=== PATIENT | male | born 1950 | race Caucasian/White ===

== ENCOUNTER → 2017-02-15 | Outpatient (CLI) | payer OTHER ==
[2017-02-15 12:29] LABS: COMPLETE YES; HEMATOCRIT 44.5 % (42-52); IG% 0.2 %; LYMPH % 5.9 %; LYMPH ABS # 0.82 K/uL (1.2-3.4); MEAN CELL VOLUME 91.4 fL (80-100); MEAN CORPUSCULAR HEMOGLOBIN 31.6 pg (25-34); MEAN CORPUSCULAR HGB CONC 34.6 g/dl (32-36); MEAN PLATELET VOLUME 9.8 fL (7.4-10.4); NEUT % 88.9 %; PLATELET COUNT 404 K/uL (130-400); RED BLOOD COUNT 4.87 M/uL (4.7-6.1); WHITE BLOOD COUNT 13.99 K/uL (4.8-10.8)
[2017-02-15 12:49] LABS: ALT/SGPT 35 U/L (12-78); BLOOD UREA NITROGEN 17 mg/dl (7-18); BUN/CREATININE RATIO 18.3 (10-20); CALCIUM 9.4 mg/dl (8.5-10.1); CARBON DIOXIDE 29 mmol/L (21-32); CHLORIDE 98 mmol/L (98-107); CHOLESTEROL 175 mg/dl (0-200); CREATININE 0.92 mg/dl (0.60-1.40); GLUCOSE 120 mg/dl (70-99); POTASSIUM 3.6 mmol/L (3.5-5.1); SODIUM 135 mmol/L (136-145)
[2017-02-15 12:53] LABS: ALB/GLOB RATIO 1.1 (0.9-2); ALKALINE PHOSPHATASE 106 U/L (45-117); AST/SGOT 15 U/L (15-37); CHOLESTEROL/HDL RATIO 2.4; HDL CHOLESTEROL 73 mg/dl; LDL CHOLESTEROL CALCULATED 91 mg/dl; TRIGLYCERIDES 55 mg/dl (0-150); VERY LOW DENSITY LIPOPROT CALC 11 mg/dl
[2017-02-15 12:58] LABS: ESTIMATED AVERAGE GLUCOSE 105 mg/dl; HA1C FLAG Normal (Normal)
[2017-02-15 13:02] LABS: URINE APPEARANCE CLEAR (CLEAR); URINE BILIRUBIN NEG (NEG); URINE COLOR YELLOW; URINE EPITHELIAL CELL AUTO 0-5 /lpf (0-5); URINE NITRITE NEG (NEG); URINE PH 6.5 (4.5-7.5); UROBILINOGEN NEG (NEG); ZZUR CULT IF INDIC CLEAN CATCH NO
[2017-02-15 13:11] LABS: MANUAL MICROSCOPIC REQUIRED? NO; REVIEW REQ? NO
== END | disposition home or self-care (01) ==
LOC: C.LABBFT 09:08
PROVIDERS: ATTEND Internal Medicine
DX: N40.1 Benign prostatic hyperplasia with lower urinary tract symptoms (principal); R73.03 Prediabetes; E78.00 Pure hypercholesterolemia, unspecified

== ENCOUNTER 2024-05-15 06:14 | Observation (INO) ==
--- NOTE | 2024-04-13 15:58 | PAT Medication Instructions ---
Medication Instructions Date of Service April 13, 2024 Home Medications Medication Instructions Recorded ondansetron 4 mg disintegrating 4 mg PO Q6H PRN nausea and 05/21/23 tablet vomiting #10 tabs amlodipine 10 mg tablet 10 mg PO QAM #90 tabs 06/24/23 finasteride 5 mg tablet 5 mg PO QPM #90 tabs 06/24/23 lisinopril 20 1 tab PO BID #180 tabs 06/24/23 mg-hydrochlorothiazide 25 mg tablet metoprolol succinate 100 mg 100 mg PO QAM #90 tabs 06/24/23 tablet,extended release 24 hr potassium chloride 20 mEq 20 meq PO BID #180 tabs 06/24/23 tablet,extended release(part/cryst) (Klor-Con M) pravastatin 80 mg tablet 80 mg PO QPM #90 tabs 06/24/23 walker #1 ea 03/23/24 amoxicillin 500 mg tablet 500 mg PO BID 10 days #20 tabs 03/30/24 aspirin 81 mg tablet 81 mg PO QAM multivitamin 1 tab PO QAM melatonin 10 mg tablet 10 mg PO HS PRN ondansetron 4 mg disintegrating tablet 4 mg PO Q6H PRN amlodipine 10 mg tablet 10 mg PO QAM finasteride 5 mg tablet 5 mg PO QPM lisinopril 20 mg-hydrochlorothiazide 25 mg tablet 1 tab PO BID metoprolol succinate 100 mg tablet,extended release 24 hr 100 mg PO QAM potassium chloride 20 mEq tablet,extended release(part/cryst) (Klor-Con M) 20 meq PO BID pravastatin 80 mg tablet 80 mg PO QPM amoxicillin 500 mg tablet 500 mg PO BID ASK your prescriber and surgeon aspirin 81 mg tablet 81 mg PO QAM DO NOT take the morning of surgery multivitamin 1 tab PO QAM lisinopril 20 mg-hydrochlorothiazide 25 mg tablet 1 tab PO BID potassium chloride 20 mEq tablet,extended release(part/cryst) (Klor-Con M) 20 meq PO BID Take morning of surgery With a small sip of water, OTHERWISE NOTHING TO EAT OR DRINK AFTER MIDNIGHT: ondansetron 4 mg disintegrating tablet 4 mg PO Q6H PRN(if needed) amlodipine 10 mg tablet 10 mg PO QAM metoprolol succinate 100 mg tablet,extended release 24 hr 100 mg PO QAM amoxicillin 500 mg tablet 500 mg PO BID Take evening before surgery melatonin 10 mg tablet 10 mg PO HS PRN(if needed) ondansetron 4 mg disintegrating tablet 4 mg PO Q6H PRN(if needed) finasteride 5 mg tablet 5 mg PO QPM lisinopril 20 mg-hydrochlorothiazide 25 mg tablet 1 tab PO BID potassium chloride 20 mEq tablet,extended release(part/cryst) (Klor-Con M) 20 meq PO BID pravastatin 80 mg tablet 80 mg PO QPM amoxicillin 500 mg tablet 500 mg PO BID Other Notes If you have any questions please call us at [phone] or [phone] or [phone] or [phone]
--- NOTE | 2024-04-24 10:24 | Anesthesiology Consultation ---
Date of Service April 24, 2024 Assessment & Plan (1) Encounter for pre-operative examination: - Infectious disease screening: Per assessment on 04/24/24- No known recent infectious disease contacts in past 10 days. Patient had sinus infection/URI onset 03/2024 which was treated. He has had resolution in previous symptoms except residual morning mucous buildup and rare cough (continuing to improve). Patient advised to contact PAT/surgeon if not at baseline prior to surgery. - Outpatient joint assessment: Pt currently scheduled for inpatient pathway. If surgeon requests review for outpatient joint pathway, patient is an acceptable candidate for outpatient joint program from anesthesia standpoint pending surgeon's office assessment that patient is motivated, has good support and completes [facility] Day Joint Program preop requirements. - S/P Right shoulder arthroscopy, RCR (05/21/23): Grade 1 view, Glidescope#4, ETT 8 + regional at [facility] Chart Review Chart Review: Acceptable Risk for Surgery and Patient seen in Pre Admission Testing Teaching & Discussion Pre-Anesthesia Teaching/Discussion Notes: Instructed NPO after midnight before surgery,except medications with 15 cc of water. Medication instructions provided according to the PAT guidelines. History Surgery Operation Date: 05/15/24 08:50 Proposed Procedures p Right Total Knee Arthroplasty - Abhilash Arndt MD Height/Weight Height: 5 ft 10 in Weight: 90.1 kg Allergies Allergy/AdvReac Type Severity Reaction Status Date / Time atorvastatin AdvReac Mild Muscle Pain Verified 04/09/24 09:56 rosuvastatin AdvReac Mild Muscle Pain Verified 04/09/24 09:56 simvastatin AdvReac Mild Muscle Pain Verified 04/09/24 09:32 tamsulosin AdvReac Mild vertigo Verified 04/09/24 09:32 Medications Home Medications Medication Instructions Recorded Confirmed Last Taken aspirin 81 mg tablet 81 mg PO QAM 02/25/19 04/09/24 05/17/23 multivitamin 1 tab PO QAM 02/25/19 04/09/24 Unknown melatonin 10 mg tablet 10 mg PO HS PRN prn 05/09/23 04/09/24 Unknown ondansetron 4 mg disintegrating 4 mg PO Q6H PRN nausea and 05/21/23 04/09/24 Unknown tablet vomiting #10 tabs amlodipine 10 mg tablet 10 mg PO QAM #90 tabs 06/24/23 04/09/24 Unknown finasteride 5 mg tablet 5 mg PO QPM #90 tabs 06/24/23 04/09/24 Unknown lisinopril 20 1 tab PO BID #180 tabs 06/24/23 04/09/24 Unknown mg-hydrochlorothiazide 25 mg tablet metoprolol succinate 100 mg 100 mg PO QAM #90 tabs 06/24/23 04/09/24 Unknown tablet,extended release 24 hr potassium chloride 20 mEq 20 meq PO BID #180 tabs 06/24/23 04/09/24 Unknown tablet,extended release(part/cryst) (Klor-Con M) pravastatin 80 mg tablet 80 mg PO QPM #90 tabs 06/24/23 04/09/24 Unknown walker #1 ea 03/23/24 Unknown amoxicillin 500 mg tablet 500 mg PO BID 10 days #20 tabs 03/30/24 04/09/24 Unknown Past Medical History Medical History Arthritis BPH (benign prostatic hyperplasia) History of COVID-19 2021 + 05/2023, mild syptoms, resolved HTN (hypertension) Hypercholesteremia Mitral regurgitation Echo 04/2019: Trace to mild MR Pre-diabetes "Borderline" Right knee DJD Sensorineural hearing loss (SNHL) of both ears Exercise / Class Metabolic Activity II 4-5 Yardwork/Stairs/Walk up hill Past Family History Family History Sister Breast cancer Father Prostate cancer Denies family history of Ovarian cancer Myocardial infarction Colorectal cancer Past Surgical History Surgical History Family history of reaction to anesthesia Father difficulty waking at age 84 and cognitive impair History of vasectomy Hx of arthroscopy of shoulder Right shoulder arthroscopy, RCR (05/21/23): Grade 1 view, Glidescope#4, ETT 8 + regional at [facility] Past Anesthesia History No Hx of Anesthesia Complications * Father difficulty waking and cognitive impair (at age 84) History of PONV No Hx of PONV and No Hx of Motion Sickness Social History Smoking Status: Former smoker tobacco type: cigarettes, pipe and smokeless tobacco Do You Dip or Chew Tobacco: No Smoking End Date: Quit tobacco use x 2 years ago Hx Alcohol Use: Yes Alcohol type: beer alcohol intake frequency: holidays/special occasions only Hx Substance Use: No substance use type: does not use Review of Systems Patient denies chest pain, shortness of breath, dyspnea on exertion, fever, chills, wheezing, palpitations. Physical Exam Vital Signs BP 149/86 P 61 TEMP 97.9 SP02 95%RA RESP 16 Physical Full cervical extension range of motion. Full TMJ range of motion. TMD > 3.5 finger breaths Mallampati Score II Dentition: missing molars, + crowns Lungs: clear throughout to auscultation Cardiac: regular rate and rhythm, faint systolic murmur Spine: normal Carotid arteries: negative bruit Extremities: no LE edema Lab Results Anesthesia Preop Results Results Anesthesia Widget: WBC 5.63 K/ul (4.8-10.8) 04/24/24 Hgb 15.1 g/dl (14.0-18.0) 04/24/24 Hct 43.0 % (42.0-52.0) 04/24/24 Plt 308 K/uL (130-400) 04/24/24 Na 140 mmol/L (136-145) 04/24/24 K 3.7 mmol/L (3.5-5.1) 04/24/24 Cl 100 mmol/L (98-107) 04/24/24 CO2 33 mmol/L (21-32) H 04/24/24 BUN 14 mg/dl (6-23) 04/24/24 Creat 0.79 mg/dl (0.6-1.4) 04/24/24 Glucose Level 101 mg/dl (70-99(Fasting)) H 04/24/24 PT 10.2 Seconds (9.0-12.0) 04/24/24 PTT 25 Seconds (21-31) 04/24/24 INR 0.9 (0.9-1.1) 04/24/24 HA1c 5.4 % (4.5-5.6) 04/24/24 Blood Type B Negative 04/24/24 Antibody Screen NEGATIVE 04/24/24 Testing Electrocardiogram Date: 04/24/24 SB at 57bpm. RBBB. No significant change compared to 04/08/2023 per logistics administrator comparison. Chest X-Ray Date: 04/24/24 FINDINGS: The cardiac silhouette measures within normal limits. Calcification of the thoracic aorta. The hilar and mediastinal structures appear unremarkable. The lungs are clear. The osseous structures appear grossly intact. Degenerative changes of the thoracic spine. IMPRESSION: No evidence of acute cardiopulmonary disease, communicable disease or tuberculosis. Echocardiogram Date: 04/29/19 EF 60-65%. No regional wall motion abnormality. Mild concentric LVH. Mild RVD. Sclerotic AV, trace regurgitation. Trace to mild MR. Mild TR. Trace UT. Normal estimated RVSP. Other Testing Carotid Duplex Date: 06/27/22 < 50% stenosis ICAs b/l. Antegrade flow b/l vertebral arteries.
--- NOTE | 2024-05-05 12:13 | History & Physical Report ---
Date of Service May 05, 2024 Assessment & Plan (1) Right knee DJD: 73-year-old gentleman with advanced right knee DJD primarily involving the medial compartment. He has failed conservative care. He would like to have his right knee replaced. Plan: We are going to take him to the operating room and do a right knee replacement. The risks and benefit this procedure were explained in depth. The patient understands. He is planned to stay in the hospital overnight and likely discharge postoperative day 1. Will use aspirin for DVT prophylaxis. (2) Hypercholesteremia: (3) HTN (hypertension): (4) Pre-diabetes: (5) BPH (benign prostatic hyperplasia): (6) Mitral regurgitation: History of Present Illness Chief Complaint: . Persistent right knee pain discomfort. Primary Care Provider: Larry London MD . The patient is a 73-year-old gentleman who presents for surgical treatment of his right knee. He has a 10-year history of gradual increasing right knee pain discomfort describes gotten worse over time. He has been managed by both Dr. Torres and Dr. Dietrich most recently. He has failed conservative care. He is had steroid shots and gel injections which become less successful over time. Pains become more debilitating. He is ready to have his knee fixed. Allergies Allergy/AdvReac Type Severity Reaction Status Date / Time atorvastatin AdvReac Mild Muscle Pain Verified 04/09/24 09:56 rosuvastatin AdvReac Mild Muscle Pain Verified 04/09/24 09:56 simvastatin AdvReac Mild Muscle Pain Verified 04/09/24 09:32 tamsulosin AdvReac Mild vertigo Verified 04/09/24 09:32 Home Medications Medication Instructions Recorded Confirmed Type aspirin 81 mg tablet 81 mg PO QAM 02/25/19 04/09/24 History multivitamin 1 tab PO QAM 02/25/19 04/09/24 History melatonin 10 mg tablet 10 mg PO HS PRN prn 05/09/23 04/09/24 History ondansetron 4 mg disintegrating 4 mg PO Q6H PRN nausea and 05/21/23 04/09/24 Rx tablet vomiting #10 tabs amlodipine 10 mg tablet 10 mg PO QAM #90 tabs 06/24/23 04/09/24 Rx finasteride 5 mg tablet 5 mg PO QPM #90 tabs 06/24/23 04/09/24 Rx lisinopril 20 1 tab PO BID #180 tabs 06/24/23 04/09/24 Rx mg-hydrochlorothiazide 25 mg tablet metoprolol succinate 100 mg 100 mg PO QAM #90 tabs 06/24/23 04/09/24 Rx tablet,extended release 24 hr potassium chloride 20 mEq 20 meq PO BID #180 tabs 06/24/23 04/09/24 Rx tablet,extended release(part/cryst) (Klor-Con M) pravastatin 80 mg tablet 80 mg PO QPM #90 tabs 06/24/23 04/09/24 Rx walker #1 ea 03/23/24 Rx amoxicillin 500 mg tablet 500 mg PO BID 10 days #20 tabs 03/30/24 04/09/24 Rx Past Med/Surg History Problem List Encounter for pre-operative examination Supraspinatus tendon tear Rising PSA level Elevated liver enzymes (Acute) Impotence, organic (Acute) Peyronie's disease (Acute) Seborrheic keratosis (Acute) Tinnitus (Acute) Medical History Hypercholesteremia Right knee DJD Arthritis Sensorineural hearing loss (SNHL) of both ears HTN (hypertension) Pre-diabetes "Borderline" Mitral regurgitation Echo 04/2019: Trace to mild MR BPH (benign prostatic hyperplasia) History of COVID-19 2021 + 05/2023, mild syptoms, resolved Surgical History Family history of reaction to anesthesia Father difficulty waking at age 84 and cognitive impair History of vasectomy Hx of arthroscopy of shoulder Right shoulder arthroscopy, RCR (05/21/23): Grade 1 view, Glidescope#4, ETT 8 + regional at [facility] Family History Sister Breast cancer Father Prostate cancer Denies family history of Ovarian cancer Myocardial infarction Colorectal cancer Social History Smoking Status: Former smoker Tobacco Type: Cigarettes and Pipe Age Started Using Tobacco: 16; Age Quit Using Tobacco: 34; packs per day: 1; Smoking End Date: Quit tobacco use x 2 years ago; Second Hand Exposure: No; Do You Dip or Chew Tobacco: No; Tobacco Cessation Education Requested by Patient: No Hx Alcohol Use: Yes Alcohol type: beer Alcohol Intake Frequency: 4 or More x per/Week Hx Substance Use: No Preferred Language: Ukrainian Communication Ability: Effective Visual Impairment: Limited Hearing Ability: Use of Hearing Aid Home Agent Required: No Beliefs That Will Affect Care: None marital status: Current Living Situation: Spouse current occupational status: retired current occupation: [employer]. Other Information That Helps Us Care for You: No Feels Safe at Home: Yes Safety Concerns: Feels Safe At This Time Childhood Exposure to Second-Hand Smoke: No Diet: regular caffeine: Yes (coffee in the AM) during the past year weight has: remained stable Dental Care, Regularly: Yes Physical Activity Frequency: 1-2 Times per Week Seatbelt Use: always Sunscreen Use: No Assistive Devices: Glasses and Hearing Aid - Bilateral Assistive Devices Comment: prn glasses Review of Systems All systems reviewed & are unremarkable except as noted in HPI & below. Physical Exam . Physical examination reveals a pleasant middle-age male. Looks in pretty good health. Examination of the right knee reveals patient walks with slightly antalgic gait. Got varus alignment to his knee. Got bony hypertrophy medially. Small to moderate-sized knee effusion. Range of motion about 5 degrees short of full extension to 120 years of flexion. There is no instability. No particular pain with hip motion. Constitutional WD/WN, vitals as above Neck trachea midline, no thyromegaly Respiratory normal respiratory effort, lungs clear to auscultation Cardiovascular RRR, no murmur, no edema Gastrointestinal (Abdomen) normal bowel sounds, soft, nontender, no hepatosplenomegaly Results & Data Results & Data Laboratory Results . Diagnostic Findings . X-rays of the right knee reviewed. She has advanced right knee DJD. Is got near complete loss of his medial joint space. Discussed some moderate patellofemoral disease as well. PG Care Time/CCT Total # of Minutes Spent Total Time Spent with Patient: Total time spent is greater than 50% in coordination of care (as documented) at patient's floor/unit and/or counseling patient: Coding Level of Care Code None Diagnoses Right knee DJD M17.11 Hypercholesteremia E78.00 HTN (hypertension) I10 Pre-diabetes R73.03 BPH (benign prostatic hyperplasia) N40.0 Mitral regurgitation I34.0
[2024-05-15] MEDS ORDERED: BUPIVACAINE 0.5 % 5 MG/1 ML PF 10ML VIAL ONE (06:30)
[2024-05-15] MEDS ORDERED: ROPIVACAINE 0.5% 5 MG/ML 30 ML VIAL ONE (06:30)
--- NOTE | 2024-05-15 06:51 | History & Physical Bridge Note ---
Date of Service May 15, 2024 History & Physical Bridge Note I have examined the patient, reviewed the History & Physical and in the interval since the performance of the History & Physical I have noted the following changes of clinical significance: no changes noted
[2024-05-15] MEDS: METOCLOPRAMIDE HCL 10 MG TABLET PO SCH (06:57)
[2024-05-15] MEDS: ACETAMINOPHEN 500 MG TAB PO SCH ×2 (06:57→14:53)
[2024-05-15] MEDS: FAMOTIDINE 20 MG TAB PO SCH (06:58)
[2024-05-15] MEDS: LR 60ML/HR IV SCH (06:58)
[2024-05-15] MEDS: LR 500ML BOLUS, THEN 15ML/HR IV SCH (06:58)
[2024-05-15] MEDS: CeleBREX 200 MG CAP PO SCH (06:58)
[2024-05-15] MEDS ORDERED: PROPOFOL IV EMULSION 10 MG/ML 20 ML VIAL IV ONE (07:27)
[2024-05-15] MEDS ORDERED: fentaNYL citrate PF 100 MCG/2 ML VIAL ONE (07:28)
[2024-05-15] MEDS ORDERED: MIDAZOLAM HCL 1 MG/ML 2ML VIAL ONE (07:28)
[2024-05-15] MEDS: SODIUM CHLORIDE 0.9% 1,000 ML IV SCH (07:30)
[2024-05-15] MEDS ORDERED: DROPERIDOL 5 MG/2 ML VIAL IV PRN (07:40)
[2024-05-15] MEDS ORDERED: ePHEDrine sulfate 50 MG/ML AMP IV PRN (07:40)
[2024-05-15] MEDS ORDERED: HYDROmorphone INJ 2 MG/ML SYR/VIAL IV PRN (07:40)
[2024-05-15] MEDS ORDERED: PROMETHAZINE HCL 6.25 MG in SODIUM CHLORIDE 0.9% 50 ML IV PRN (07:40)
[2024-05-15] MEDS ORDERED: ATROPINE SULFATE 0.1 MG/ML 10ML SYR IV PRN (07:40)
[2024-05-15] MEDS: ceFAZolin 2000MG 2,000 MG/15 ML SYR IV SCH ×2 (09:30→18:07)
[2024-05-15] MEDS ORDERED: PROPOFOL IV EMULSION 10 MG/ML 100 ML VIAL IV ONE (09:31)
[2024-05-15] MEDS: ORTHO JOINT ANESTHETIC ONE (10:06)
[2024-05-15] MEDS: ROPIV 0.5% 246mg, Ketorolac 30mg, EPINEPHrine 0.5mg in NSS INFIL SCH (10:06)
[2024-05-15] MEDS: TRANEXAMIC ACID 1,000 MG **IV Intra-op IV SCH (10:25)
--- NOTE | 2024-05-15 11:13 | Operative Report ---
PG Post Operative Report Pre & Post Diagnosis Operation Date: 05/15/24 08:50 Pre-Op Diagnosis: Right Knee Degenerative Joint Disease Post-Op Diagnosis: Right Knee Degenerative Joint Disease I identified the patient and participated in the time-out.: Yes Procedure Operation Date: 05/15/24 08:50 Actual Procedures p Right Total Knee Arthroplasty(Right) - Abhilash Arndt MD Surgeon Abhilash Arndt MD Skip Miner Bruce Overton PA-C Estimated Blood Loss 50 Findings Consistent with Post-Op Diagnosis Operative findings reveal advanced right knee DJD. He had extensive grade 4 [id number] disease of the medial femoral condyle medial tibial plateau with significant eburnation. Moderate-sized osteophytes. Large knee joint effusion. Some moderate synovitis. He had a fixed varus deformity to his knee and a slight flexion contracture. He had some spotty grade 4 changes of the patellofemoral joint. Specimens Right knee sent for pathology. Anesthesia Type Spinal MAC Complications none Disposition Accompanied Patient To Recovery: No Indications The patient is a 73-year-old gentleman whose had a long history of gradually progressive increasing right knee pain and discomfort that is gotten worse over time has been through extensive conservative treatment over several years which became less successful. X-rays showed advanced knee arthritis. He had recurrent large effusions. Elected proceed with total knee arthroplasty. Description of Procedure Operative implants consist of: 1. Biomet Vanguard size 70 right posterior stabilized femoral component. 2. Biomet size 75 tibial tray. 3. 12 mm posterior stabilized polyethylene insert. 4. 31 x 8 all poly patella. The patient was taken the op room, identified, placed on the operating table in the supine position. All conductors were appropriately padded. IV antibiotics fibra anesthesia team. A spinal anesthetic and adductor canal block had been provided in the holding area. The right thigh tent was then placed to the right lower extremities then prepped and draped in the usual sterile fashion. The right leg was elevated and exsanguinated with use of an Esmarch and a turn was placed at 300 mmHg. An anterior approach to the right knee was then performed through a longitudinal incision centered over the kneecap. Sharp dissection scalp through subcutaneous tissue down the extensor mechanism. A medial parapatellar arthrotomy incision was made. Some subperiosteal dissection was carried out medially. The fat pad was dissected beneath patella tendon. The lateral patellofemoral ligament was released. Patella subluxated laterally and the knee was flexed. The osteophytes taken on distal femur. The ACL PCL were then released from the distal femur and the tibia was subluxated an teriorly. The external tibial alignment jig was then placed on the interface the tibia and adjusted 14 mm medially. The proximal tibial cut was made remove about a millimeter of bone from the most deficient medial aspect of the tibia. Some osteophytes taken off medially. Tibia sized to a size 75. Attention drawn the femur. The distal femur examined the sharp drop with intramedullary canal was suction. A right 6 degree valgus cutting guide was placed. The distal femoral cutting block was pinned in place. This femoral cut was made take an additional 3 mm of bone off distal femur. The femur was then sized to a size 70. It sized exactly to a size 70. The AP cutting block was pinned parallel to the epicondylar axis which was 3 degrees of external rotation. The anterior cut, anterior chamfer, posterior cut, posterior chamfer cuts were made. The box cutting guide was then placed and adjusted slightly laterally. The box cut was made. The remnants of the medial and lateral menisci were excised. The osteophytes taken off the posterior aspect the femur. A trial femoral component was placed. The tibial tray was pinned Erin external rotation and the drill and stem punch used. Defect in proximal tibia for the tibial tray. Knee was then trialed and the 12 mm insert fit most appropriately. Attention drawn the patella. The patella was cleaned of all soft tissues. Patella thickness measured 23 mm in thickness was cut down to 15. Was sized to a size 31 patella. The lug holes were drilled for 31 patella. The lateral osteophytes removed. Patella button was placed. Knee was taken through range of motion patella tracked nicely with no thumbs test. Attention was then drawn toward placement permanent components. All trial components were removed. A bone plug was placed into this femur limit blood loss. A double batch Palacos G cement was mixed. A Biomet Vanguard size 70 right posterior stabilized femoral component, size 75 tibial tray, a 12 mm posterior Byce polyethylene insert, and a 31 x 8 all poly patella then cemented in place. The knee was brought out into full extension till cement hardened. Final cement circles then performed. The pericapsular tissues were injected with total 100 cc of Ortho mix. Patient did receive 1 g tranexamic acid. The tourniquet was then let down for final tourniquet time above 56 minutes. Hemostasis assured use electrocautery. Extensor Metros then closed with combination 1 PDS suture and #1 Vicryl suture in a [id number] fashion. Extensor Metros were checked and found to be intact with subcutaneous tissues then closed with 2 Dexon suture in a buried interrupted fashion and the skin was closed with skin vikash. Leg was then cleaned and dried a sterile dressing with Xeroform, 4 fours, sterile cast padding, Jeyson bandage were applied. The patient was then transferred to the recovery room in stable condition. Patient tolerated procedure well and there were no complications. Bruce Overton, my physician assistant service manager, was present for the entire procedure. His assistance was essential and required for appropriate patient positioning, prepping and draping, surgical exposure, performing the technical details of the operation, placement the implants, closure of the wound, and placement of the sterile bandage. I attest to the content of the Intraoperative Record and any orders documented therein. Any exceptions are noted below.
--- NOTE | 2024-05-15 11:20 | XRay Report ---
XR knee RT 1 or 2V routine CLINICAL HISTORY: Postoperative evaluation. COMPARISON: Right knee radiographs December 05, 2023. FINDINGS: Alignment of the total right knee arthroplasty is anatomic. There is no periprosthetic fra cture or unexpected radiopaque foreign body. There are skin vikash. IMPRESSION: Expected findings following total right knee arthroplasty. ACT 112: Negative or not required by law. Electronically signed by: Albin Saavedra M.D. 05/15/2024 11:18 AM
[2024-05-15] MEDS ORDERED: NALOXONE HCL 0.4 MG/1 ML VIAL/CARP IV PRN (12:46)
[2024-05-15] MEDS ORDERED: MAGNESIUM HYDROXIDE SUSP 30 ML UDC PO PRN (12:46)
[2024-05-15] MEDS ORDERED: ONDANSETRON INJ 2 MG/ML 2 ML VIAL IV PRN (12:46)
[2024-05-15] MEDS ORDERED: ONDANSETRON 4 MG OD TAB PO PRN (12:46)
[2024-05-15] MEDS ORDERED: METOCLOPRAMIDE HCL INJ 5 MG/ML 2 ML VIAL IV PRN (12:46)
[2024-05-15] MEDS ORDERED: ALUMINUM/MAGNESIUM SUSP 30 ML UDC PO PRN (12:46)
[2024-05-15] MEDS ORDERED: bisacodyL 10 MG SUPP PR PRN (12:46)
[2024-05-15] MEDS ORDERED: TAMSULOSIN HCL 0.4 MG CAP PO PRN (12:46)
[2024-05-15] MEDS ORDERED: HYDROmorphone INJ 0.5 MG/0.5 ML SYR IV PRN (12:46)
[2024-05-15] MEDS ORDERED: MELATONIN 3 MG TAB PO PRN (13:00)
--- NOTE | 2024-05-15 14:41 | Anesthesiology Progress Note ---
Date of Service May 15, 2024 Anesthesia Post Procedure Vital Signs Vital Signs: Temp Pulse Pulse Pulse Resp BP BP 05/15/24 14:36 67 18 159/82 H 05/15/24 13:30 36.3 C L 66 16 135/85 05/15/24 13:06 61 18 129/82 05/15/24 12:40 36.4 C L 61 16 133/76 05/15/24 12:10 36.3 C L 63 12 106/55 L 05/15/24 11:55 63 18 113/63 05/15/24 11:45 63 20 108/56 L 05/15/24 11:35 63 20 104/51 L 05/15/24 11:25 66 20 101/52 L 05/15/24 11:15 65 12 90/45 L 05/15/24 11:06 36.1 C L 68 18 95/56 L 05/15/24 06:54 36.4 C L 64 20 146/100 H Pulse Ox O2 Del Method 05/15/24 14:36 96 Room Air 05/15/24 13:30 97 Room Air 05/15/24 13:06 93 Room Air 05/15/24 12:40 99 Room Air 05/15/24 12:10 98 Room Air 05/15/24 11:55 96 Room Air 05/15/24 11:45 96 Room Air 05/15/24 11:35 96 Room Air 05/15/24 11:25 95 Room Air 05/15/24 11:15 95 Room Air 05/15/24 11:06 100 Room Air 05/15/24 06:54 98 Room Air Transfer of Care Handoff Completed per policy Notes Mental Status: alert / awake / arousable and participated in evaluation Nausea / Vomiting: adequately controlled Pain: adequately controlled Airway Patency, RR, SpO2: stable & adequate BP & HR: stable & adequate Hydration State: stable & adequate Anesthetic Complications: no major complications apparent and Pt Satisfied with anesthetic care
[2024-05-15] MEDS: KETOROLAC TROMETHAMINE 15 MG/ML VIAL IV SCH (14:54)
[2024-05-15] MEDS: ASCORBIC ACID 500 MG TAB PO SCH (18:01)
[2024-05-15] MEDS: TRANEXAMIC ACID / 0.7% NACL 1,000 MG/100 ML BAG IV SCH (18:02)
[2024-05-15] MEDS: LISINOPRIL/HCTZ 20/25MG 1 TAB PO SCH (20:40)
[2024-05-15] MEDS: FINASTERIDE 5 MG TAB PO SCH (20:40)
[2024-05-15] MEDS: ASPIRIN 81 MG ECTAB PO SCH (20:41)
[2024-05-15] MEDS: PRAVASTATIN SOD 40 MG TAB PO SCH (20:42)
[2024-05-15] MEDS: POTASSIUM CHLORIDE CRTAB 20 MEQ TABCR PO SCH (20:53)
[2024-05-15] MEDS: SENNA 8.6 MG TAB PO SCH (20:54)
[2024-05-15] MEDS: DOCUSATE SODIUM 100 MG CAP PO SCH (20:54)
[2024-05-15] MEDS ORDERED: SENNA 8.6 MG TAB PO SCH (21:00)
[2024-05-16] MEDS: oxyCODONE HCL IR 5 MG TAB (IMMEDIATE RELEASE) PO PRN (06:22)
[2024-05-16 06:28] LABS: Hematocrit (blood only) 38.2 % (42.0-52.0); Hemoglobin 12.9 g/dl (14.0-18.0); Mean Corpuscular Hemoglobin 30.5 pg (25.0-34.0); Mean Corpuscular Hgb Conc 33.8 g/dL (32.0-36.0); Mean Corpuscular Volume 90.3 fL (80.0-100.0); Mean Platelet Volume 9.3 fL (9.4-12.4); Platelet Count 286 K/uL (130-400); RDW Standard Deviation 42.5 fL (36.4-46.3); Red Blood Count 4.23 M/uL (4.70-6.10); White Blood Count 9.85 K/ul (4.8-10.8)
[2024-05-16 06:45] LABS: BUN Creatinine Ratio 17.5 (10-20); Calcium 8.7 mg/dl (8.6-10.3); Creatinine Clr Calc Pharmacy 92.8 ml/min; Potassium 3.3 mmol/L (3.5-5.1)
--- NOTE | 2024-05-16 07:57 | Orthopedic Progress Note ---
Date of Service May 16, 2024 Assessment & Plan (1) Status post right knee replacement: Plan: 73-year-old gentleman postop day 1 from a right knee replacement doing well. His pain is under control. Has had to take a little pain medicine which is not unusual. He is neurologically intact. Plan: 1. PT/OT. Weight-bear as tolerated. Right total knee protocol. 2. DVT prophylaxis including thigh-high teds, SCDs, aspirin twice a day. 3. Pain control doing okay with current pain regimen. 4. Hypokalemia. Will supplement him with some potassium today. 5. Disposition plan discharge home with some home health later today. (2) Hypercholesteremia: (3) HTN (hypertension): (4) Pre-diabetes: (5) BPH (benign prostatic hyperplasia): (6) Hypokalemia: Admission and Anticipated Discharge Date Admission Date: May 15, 2024 Subjective 73-year-old gentleman postop day 1 from right knee replacement. Is doing pretty well. The pain got a little bit more unbearable last night had taken pain medicine and doing better this morning. No chest pain or shortness of breath. Not feeling dizzy or lightheaded. He is hoping to go home today. Physical Exam Physical Exam: Physical examination was a pleasant middle-age male. He is lying bed looks pretty comfortable. Examination of the right leg reveals the leg to be well aligned. Dressings clean dry and intact. He can dorsiflex and plantarflex his foot appropriately. He is neurologically intact. Respiratory: normal respiratory effort, lungs clear to auscultation Cardiovascular: RRR, no murmur, no edema Gastrointestinal (Abdomen): normal bowel sounds, soft, nontender, no hepatosplenomegaly Results & Data Vital Signs (Past 12 Hours) Vital Signs Temp Pulse Resp BP Pulse Ox O2 Del Method 05/16/24 03:00 36.8 C 72 18 133/77 Room Air 05/15/24 23:30 36.7 C 70 16 118/79 97 Room Air Laboratory Results Hemoglobin is 12.9. Hematocrit 38.2. Electrolytes are stable. Potassium slightly low at 3.3.
[2024-05-16 08:25] VITALS: RESP 16; TEMP 98.4; O2SAT 96
[2024-05-16] MEDS: dexAMETHasone 10 MG in SYRINGE 0 ML IV SCH (08:51)
[2024-05-16] MEDS: POTASSIUM CHLORIDE CRTAB 20 MEQ TABCR PO ONE (08:51)
[2024-05-16] MEDS ORDERED: NON-FORMULARY MEDICATION (Multivitamin tablet) PO SCH (09:00)
[2024-05-16] MEDS: amLODIPine BESYLATE 5 MG TAB PO SCH (09:36)
[2024-05-16] MEDS: MULTIVITAMIN TAB PO SCH (09:37)
[2024-05-16 10:11] VITALS: BP 129/75; PULSE 80
[2024-05-16] MEDS: METOPROLOL SUCC 50MG EXT REL TAB PO SCH (10:11)
--- NOTE | 2024-05-19 06:34 | Discharge Summary ---
Date of Service May 19, 2024 Admission HPI (Per Admitting) . The patient is a 73-year-old gentleman who presents for surgical treatment of his right knee. He has a 10-year history of gradual increasing right knee pain discomfort describes gotten worse over time. He has been managed by both Dr. Torres and Dr. Dietrich most recently. He has failed conservative care. He is had steroid shots and gel injections which become less successful over time. Pains become more debilitating. He is ready to have his knee fixed. Admission Exam (Per Admitting) . Physical examination reveals a pleasant middle-age male. Looks in pretty good health. Examination of the right knee reveals patient walks with slightly antalgic gait. Got varus alignment to his knee. Got bony hypertrophy medially. Small to moderate-sized knee effusion. Range of motion about 5 degrees short of full extension to 120 years of flexion. There is no instability. No particular pain with hip motion. Principal Diagnosis Same as "Discharge Diagnosis" noted below under Discharge Instructions. Discharge Data Procedures Performed Operation Date: 05/15/24 08:50 Actual Procedures p Right Total Knee Arthroplasty(Right) - Abhilash Arndt MD Ordered Studies 05/15/24 05:00 US - OR guided needle placemen Routine Hospital Course (1) Status post right knee replacement: This is a 73 year old patient admitted on 05/15/24 and underwent total knee arthroplasty. He tolerated the procedure well and there were no complications. Transferred to the PACU post op and later to the orthopedic floor for further care. He was given ancef for antibiotic prophylaxis. He was also given JOHN stockings, SCDs, and aspirin for DVT prophylaxis. Hemoglobin, hematocrit, and vital signs were monitored during his hospital stay and remained stable. Did not require any blood transfusions. There were no complications during his hospital stay. By post op day #1 the patient was tolerating a regular diet, pain was reasonably controlled with oral pain medicine, and he was participating in physical therapy. On post op day #1 the patient was discharged home and set up with home health care. He was given printed discharge instructions including prescriptions for extra strength tylenol, aspirin, cefadroxil, ketorolac, zofran, oxycodone, and senokot. Continue physical therapy, weight bearing as tolerated. Continue TE D stockings. Follow up approximately 2 weeks post op or sooner if there are problems or concerns. PG Care Time/CCT Total # of Minutes Spent Total Time Spent with Patient: Total time spent is greater than 50% in coordination of care (as documented) at patient's floor/unit and/or counseling patient: Discharge Plan Discharge Items Patient Disposition: Home - Home Health Services Reason For Visit: Osteoarthritis Knee Right Discharge Diagnosis: Right Knee Replacement Activity: Per Instructions section Lifting: None Weightbearing: Full weightbearing Non-emergency contact: Surgeon Call non-emergency contact if: you have any medication questions Follow-up/Referrals: Larry London MD [Primary Care Provider] - Diet: Carb Consistent or DM2 Addtl Attending Provider Instructions: ACTIVITY RECOMMENDATIONS: Diet: * You may resume previous diet. Physical Therapy: * You will go to physical therapy three times each week for four to six weeks after your surgery in order to regain your knee range of motion and to retrain your knee to work properly. * It is just as important to make sure you are getting your knee perfectly straight as it is to regain your knee bend. * Taking a pain pill an hour before therapy can help you have a more productive and comfortable therapy session. Home Exercise: * You were shown a series of exercises (heel props, heel slides, etc.) in the hospital. Do these exercises three to four times each day including the exercises you were shown in physical therapy. Walking: * Get up and walk several times each day. For the first four weeks, try not to stand or walk for more than one hour at a time. If you do stand or walk for more than one hour, you will not hurt anything, but your knee and leg will likely swell. * As you feel comfortable, you may change from the walker or crutches to a cane and then to independent walking. MEDICATIONS: New Medicine: * You will likely be taking one or more of these medications: 1. Oxycodone - A quick and shorter-acting pain medication. Take one to two tablets every six hours to lessen your pain. 2. Aspirin - Thins your blood to lessen the chance of forming a blood clot. * The most common side effects of pain medicine and iron are nausea and constipation. If nausea or constipation is too much of a problem or if you have any questions about your new medicines or doses, call [facility] at . We will try to help you manage these issues. "VERY IMPORTANT TO READ AND REVIEW" Pain: * The immediate post-operative period after knee replacement surgery is often quite painful. * You are given a prescription for pain medicine. You should take it, as directed, when you need it, especially before physical therapy and before going to bed. Pain that interferes with sleep is very common and can last several months. * You will likely need pain medicine for the first four to six weeks. It will not stop all of the pain. The pain will lessen and as you feel better, you may change to milder pain medicine such as Tylenol. * The most common side effects of pain medicine are nausea and constipation, so don't take more than you need. SPECIAL CARE INSTRUCTIONS: TEDs/Elastic Stockings: * The white elastic stockings help limit swelling and prevent blood clots from forming in your legs. The more you wear them, the more they work. * Wear them for six weeks after knee replacement surgery and four weeks after partial knee replacement. Incision Site Care: * Remove dressing postoperative day 2 and then shower. Keep direct shower pressure off the incision site. * After showering, cover vikash with dry gauze and change daily or more frequently if the dressing is getting saturated with drainage. * Use the JOHN stockings to hold dressing in place. DO NOT apply tape on the skin. * May completely stop using bandage if wound is dry and no drainage * Mesa are removed between 2 and 3 weeks post-op. If your follow-up appointment is made before 2 weeks, please have your appointment re- scheduled. It is too early to remove the vikash. Prevention of Infection: * Take antibiotics one hour before any dental cleaning, dental work, urological procedure, gastrointestinal procedure or any invasive surgery in order to prevent your new joint from getting infected. * You may get the antibiotics from the doctor performing the procedure or you may call our office at [phone] before and we will call in a prescription to the pharmacy of your choice. Things to Watch For: * Drainage from the incision site that occurs more than one week after your surgery. * Severely increased knee/leg pain or swelling. * Increased redness at the incision site. * Fever above 102 degrees Fahrenheit. * Unusual chest pain or shortness of breath. * Unusual pain or burning with urination. Call [facility] at [phone] with any of the above problems or if you have any questions about your medicines or recovery. FOLLOW UP VISIT: Make an appointment to see your doctor for approximately two weeks after surgery for a progress check and staple removal by calling the office at [phone]. Pending Studies at Discharge: No Stand-Alone Forms: My [facility], Smoking Cessation Medications and DC Order Prescriptions: Continued amlodipine 10 mg tablet 10 mg PO QAM Qty: 90 3RF finasteride 5 mg tablet 5 mg PO QPM Qty: 90 3RF lisinopril-hydrochlorothiazide 20-25 mg tablet 1 tab PO BID Qty: 180 3RF metoprolol succinate 100 mg tablet extended release 24 hr 100 mg PO QAM Qty: 90 3RF potassium chloride [Klor-Con M20] 20 mEq tablet,ER particles/crystals 20 meq PO BID Qty: 180 3RF pravastatin 80 mg tablet 80 mg PO QPM Qty: 90 3RF (REGAN) louis Farrell See Rx Instructions .MEDSUPPLY Qty: 1 0RF Rx Instructions: As directed oxycodone 5 mg tablet 5 - 10 mg PO Q6 PRN (Reason: pain) Qty: 40 0RF Rx Instructions: Take as needed for pain ondansetron 4 mg tablet,disintegrating 4 mg PO Q8 PRN (Reason: nausea) Qty: 20 1RF Rx Instructions: Take as needed for nausea ketorolac 10 mg tablet 10 mg PO Q6 5 Days Qty: 20 0RF Rx Instructions: Take 4 times per day with food for 5 days to lessen pain and swelling. sennosides [Senokot] 8.6 mg tablet 8.6 mg PO BID 14 Days Qty: 28 0RF Rx Instructions: Take two times a day to prevent/treat constipation acetaminophen [Tylenol Extra Strength] 500 mg tablet 1,000 mg PO TID 30 Days Qty: 180 0RF Rx Instructions: Take 3 times per day to lessen pain. aspirin [Wes Low Dose Aspirin] 81 mg tablet,delayed release (DR/EC) 81 mg PO BID 45 Days Qty: 90 0RF Rx Instructions: Take to prevent blood clots. cefadroxil 500 mg capsule 500 mg PO BID 7 Days Qty: 14 0RF Rx Instructions: Take 1 cap twice a day to prevent infection aspirin 81 mg tablet 81 mg PO QAM multivitamin tablet 1 tab PO QAM amoxicillin 500 mg tablet 500 mg PO BID 10 Days Qty: 20 0RF melatonin 10 mg Tablet 10 mg PO HS PRN (Reason: prn) ondansetron 4 mg tablet,disintegrating 4 mg PO Q6H PRN (Reason: nausea and vomiting) Qty: 10 0RF Krames/Other Patient Handouts: Total Knee Replacement Admission Data Admit Date/Time: 05/15/24 11:05 Attending Provider: Abhilash Arndt Admit Provider: Abhilash Arndt Primary Care Provider: Larry London Other Providers: Count Includes [facility],Home Health Other Interventions: Discharge Summary Assessment (RN) Last Done: 05/16/24 11:05
== END 2024-05-16 11:30 | disposition home health service (06) ==
LOC: 3W 06:14 → ASU 06:14